=== PATIENT | male | born 1960 | race Caucasian/White ===

== ENCOUNTER 2018-02-24 02:11 | Emergency (ER) | payer BC ==
[~2018-02-24] VITALS: Ht 185.4 cm; Wt 99.8 kg
[2018-02-24] MEDS ORDERED: TETRACAINE HCL 0.5% OPTH(EYE) SOLN 4ML LEFTEYE ONE (07:00)
[2018-02-24] MEDS ORDERED: FLUORESCEIN SOD 1 MG TEST STRIP LEFTEYE ONE (07:00)
[2018-02-24 07:49] VITALS: BP 134/86
== END 2018-02-24 07:50 | disposition home or self-care (01) ==
LOC: ER 02:35
DX: H10.32 Unspecified acute conjunctivitis, left eye (principal)

== ENCOUNTER 2019-11-03 19:55 | Emergency (ER) | payer BC ==
[~2019-11-03] VITALS: Ht 188 cm; Wt 99.8 kg
[2019-11-03 20:03] VITALS: BP 130/78
== END 2019-11-03 20:06 | disposition left against medical advice (07) ==
LOC: EDBD 19:55 → ER 19:55
DX: G40.909 Epilepsy, unspecified, not intractable, without status epilepticus (principal); F17.210 Nicotine dependence, cigarettes, uncomplicated

== ENCOUNTER 2023-07-14 06:37 | Emergency (ER) | payer MEDICAID ==
[~2023-07-14] VITALS: Ht 185.4 cm; Wt 95.5 kg
[2023-07-14] MEDS ORDERED: ceFAZolin 1GM/50ML 50 ML IV ONE (07:15)
[2023-07-14] MEDS ORDERED: TETANUS-DIPTH-ACEL PERTUSSIS 0.5ML SYR Tdap IM ONE (07:15)
[2023-07-14 07:26] VITALS: BP 137/83; PULSE 100; RESP 17; TEMP 97.8; O2SAT 100
[2023-07-14] MEDS ORDERED: cefTRIAXone SOD 1,000 MG VL IM ONE (07:30)
[2023-07-14 07:31] LABS: Basophils # (auto) 0.1 10 ^3/uL (0-0.2); Basophils % (auto) 0.9 % (0.0-2.0); Eosinophils # (auto) 0.3 10 ^3/uL (0-0.8); Eosinophils % (auto) 3.4 % (0.0-7.0); Hematocrit 46.7 % (41.0-53.0); Hemoglobin 15.9 g/dL (13.5-17.5); Lymphocytes % (auto) 31.3 % (10.0-50.0); Mean Corpuscular Hemoglobin 31.8 pg (28.0-32.0); Mean Corpuscular Volume 93.2 fL (80.0-100.0); Monocytes # (auto) 0.8 10 ^3/uL (0-1.3); Monocytes % (auto) 8.1 % (0.0-12.0); Neutrophils # (auto) 5.4 10 ^3/uL (1.6-8.6); Neutrophils % (auto) 56.3 % (37.0-80.0); Red Blood Cells 5.01 10^6/uL (4.5-5.90); Red Cell Distribution Width 13.8 % (11.8-14.3); White Blood Cell 9.5 10^3/uL (4.4-10.8)
[2023-07-14 07:45] LABS: INR 1.04 (0.9-1.15); Partial Thromboplastin Time 29.5 SEC (24.5-34.5); Prothrombin Time 10.9 sec (9.3-11.8)
[2023-07-14 08:01] LABS: Alanine Aminotransferase 19 U/L (7-40); Albumin 4.7 g/dL (3.2-4.8); Alkaline Phosphatase 128 U/L (46-116); Anion Gap 7 (5-15); Aspartate Aminotransferase 16 U/L (13-40); BUN/Creatinine Ratio 12.8 (10.0-20.0); Bilirubin, Total 0.9 mg/dL (0.2-1.0); Blood Urea Nitrogen 12 mg/dL (9-23); Calcium 10.1 mg/dL (8.5-10.1); Carbon Dioxide 23 mmol/L (20-30); Chloride 108 mmol/L (98-107); Glucose 104 mg/dL (74-106); Potassium 4.3 mmol/L (3.5-5.1); Sodium 138 mmol/L (136-145); Total Protein 7.8 g/dL (5.7-8.2)
[2023-07-14] MEDS ORDERED: MELO-335 PO (09:30)
[2023-07-14] MEDS ORDERED: CEPH500C PO (09:30)
== END 2023-07-14 10:48 | disposition left against medical advice (07) ==
LOC: ER 06:37
DX: S68.012A Complete traumatic metacarpophalangeal amputation of left thumb, initial encounter (principal); Z79.01 Long term (current) use of anticoagulants; X58.XXXA Exposure to other specified factors, initial encounter; Y93.89 Activity, other specified; Y92.89 Other specified places as the place of occurrence of the external cause; Y99.8 Other external cause status
CPT/HCPCS: 36415; 73120; 80053; 85025; 85610; 85730; 90471; 90715; 96372; 99284; J0696